=== PATIENT | female | born 1960 | race Hispanic/Latino ===

== ENCOUNTER 2023-04-08 22:24 | Emergency (ER) | payer SELFPAY ==
[2023-04-08 23:06] LABS: #Basophils 0.1 10x3/uL (0.0-0.2); #Eosinphils 0.2 10x3/uL (0.0-0.5); #Monocytes 0.6 10x3/uL (0.0-1.1); #Neutrophils 4.3 10x3/uL (1.5-8.4); %Basophils 0.7 % (0.0-2.0); %Eosinophils 2.1 % (0.0-6.0); %Lymphocytes 43.3 % (18.0-47.0); %Monocytes 6.1 % (0.0-10.0); %Neutrophils 47.7 % (40.0-75.0); Hematocrit 40.4 % (34.9-44.5); Hemoglobin 12.8 g/dL (12.0-15.5); Mean Corpuscular HGB CONC 31.7 g/dL (32.0-36.0); Mean Corpuscular Hemoglobin 28.5 pg (27.0-33.0); Platelet Count 239 10x3/uL (150-450); Red Blood Cell (RBC) Count 4.49 10x6/uL (3.90-5.03)
[2023-04-08 23:17] LABS: ALT (SGPT) 48 U/L (8-55); AST (SGOT) 56 U/L (5-34); Albumin 4.7 g/dL (3.4-4.8); Alkaline Phosphatase 97 U/L (40-110); Anion Gap 21 mmol/L (10-20); BUN (Urea Nitrogen) 17 mg/dL (9.8-20.1); Bilirubin, Total 0.3 mg/dL (0.2-1.2); Calc. Creatinine Clearance 0 mL/min (70-130); Calcium 9.7 mg/dL (7.8-10.44); Carbon Dioxide 20 mmol/L (23-31); Chloride 103 mmol/L (98-107); Estimated GFR 95; Glucose 180 mg/dL (80-115); Potassium 4.1 mmol/L (3.5-5.1); Protein, Total 7.7 g/dL (5.8-8.1); Sodium 140 mmol/L (136-145)
[2023-04-08 23:23] LABS: Troponin I Less than 0.010 ng/mL (< 0.028)
== END 2023-04-09 00:09 | disposition home or self-care (01) ==
LOC: CSHERS 22:24
DX: R07.9 Chest pain, unspecified (principal); R51.9 Headache, unspecified; G89.29 Other chronic pain; E11.9 Type 2 diabetes mellitus without complications; Z79.84 Long term (current) use of oral hypoglycemic drugs; Z79.82 Long term (current) use of aspirin
CPT/HCPCS: 71045; 80053; 83880; 84484; 85025; 93005